=== PATIENT | female | born 2000 | race Asian ===

== ENCOUNTER 2025-08-15 21:44 | Emergency (ER) | payer BC, MEDICAID ==
[~2025-08-15] VITALS: Ht 165.1 cm; Wt 46.7 kg
[2025-08-15 21:46] VITALS: BP 118/75; PULSE 78; RESP 18; TEMP 36.8; O2SAT 100; O2SAT 99
[2025-08-15 22:32] VITALS: TEMP 98.2
[2025-08-15] MEDS: LIDOCAINE HCL 1% 20ML VIAL INFIL ONE (22:32)
[2025-08-15] MEDS: ACETAMINOPHEN 325MG TABLET PO ONE (22:32)
== END 2025-08-15 22:57 | disposition home or self-care (01) ==
LOC: ER 21:44
DX: S61.210A Laceration without foreign body of right index finger without damage to nail, initial encounter (principal); W26.0XXA Contact with knife, initial encounter; Y93.89 Activity, other specified; Y92.89 Other specified places as the place of occurrence of the external cause; Y99.8 Other external cause status
CPT/HCPCS: 99283; 12002; J2003